=== PATIENT | female | born 1975 ===

== ENCOUNTER → 2017-06-29 | Outpatient (CLI) | payer OTHER ==
[~2017-06-29] VITALS: Ht 152.4 cm; Wt 73.5 kg
== END | disposition home or self-care (01) ==
LOC: PPHC 12:38
DX: J06.9 Acute upper respiratory infection, unspecified (principal); R05 Cough; R09.81 Nasal congestion; R68.83 Chills (without fever)

== ENCOUNTER 2018-04-29 12:02 | Outpatient (CLI) | payer OTHER | END 2018-04-29 12:10 | disposition home or self-care (01) | LOC: LAB 12:02 | DX: J11.1 Influenza due to unidentified influenza virus with other respiratory manifestations (principal); J06.9 Acute upper respiratory infection, unspecified ==

== ENCOUNTER 2018-10-01 10:45 | Outpatient (CLI) | payer OTHER | END 2018-10-01 10:50 | disposition home or self-care (01) | LOC: RAD 10:45 | DX: M54.5 Low back pain (principal); M25.552 Pain in left hip ==

== ENCOUNTER 2019-05-10 09:46 | Outpatient (CLI) | payer OTHER | END 2019-05-10 09:48 | disposition home or self-care (01) | LOC: RAD 09:46 | DX: R07.89 Other chest pain (principal) ==

== ENCOUNTER 2023-06-23 09:17 | Outpatient (CLI) | payer OTHER | END 2023-06-23 09:25 | disposition home or self-care (01) | LOC: RAD 09:17 | DX: M51.17 Intervertebral disc disorders with radiculopathy, lumbosacral region (principal) ==

== ENCOUNTER 2024-09-29 07:17 | Outpatient (CLI) | payer OTHER | END 2024-09-29 07:29 | disposition home or self-care (01) | LOC: MRI 07:17 | PROVIDERS: ATTEND Internal Medicine | DX: M54.51 Vertebrogenic low back pain (principal); M47.27 Other spondylosis with radiculopathy, lumbosacral region; M25.531 Pain in right wrist; M25.532 Pain in left wrist; M25.541 Pain in joints of right hand; M25.542 Pain in joints of left hand; M54.2 Cervicalgia; M54.6 Pain in thoracic spine | CPT/HCPCS: 72148 ==